=== PATIENT | female | born 1955 | race Two or more races ===

== ENCOUNTER 2023-02-27 15:48 | Emergency (ER) | payer MEDICARE, OTHER ==
[~2023-02-27] VITALS: Ht 167.6 cm; Wt 83.5 kg
--- NOTE | 2023-02-27 16:08 | NUR ---
AT BEDSIDE FOR EVAL
[2023-02-27] MEDS ORDERED: ACETAMINOPHEN 325 MG TABLET PO ONE (16:30)
[2023-02-27] MEDS ORDERED: ACETAMINOPHEN 325 MG TABLET ONE (16:39)
--- NOTE | 2023-02-27 17:17 | NUR ---
PHYSICAL SCIENCE AIDE AT BEDSIDE
[2023-02-27] MEDS ORDERED: IBUP-1953 PO (19:23)
[2023-02-27] MEDS ORDERED: TYL2T PO (19:23)
[2023-02-27 19:35] VITALS: BP 132/76
== END 2023-02-27 19:36 | disposition home or self-care (01) ==
LOC: ER 16:51
DX: M79.601 Pain in right arm (principal); M79.602 Pain in left arm; R07.89 Other chest pain; I10 Essential (primary) hypertension; V89.2XXA Person injured in unspecified motor-vehicle accident, traffic, initial encounter; Y93.89 Activity, other specified; Y92.89 Other specified places as the place of occurrence of the external cause; Y99.8 Other external cause status
CPT/HCPCS: 36415; 71045-TC; 73030-TC; 73060-TC; 73090-TC; 73564-TC; 84484-TC